=== PATIENT | male | born 1985 | race Caucasian/White ===

== ENCOUNTER 2016-11-28 04:02 | Emergency (ER) | payer SELFPAY ==
[2016-11-28] MEDS ORDERED: SODIUM CHLORIDE 0.9% 1000ML 1,000 ML IVS ONE ×2 (04:32→05:56)
[2016-11-28] MEDS ORDERED: MORPHINE SULFATE INJ 10 MG/ML VIAL IV ONE (04:33)
[2016-11-28] MEDS ORDERED: ONDANSETRON ODT 8 MG TAB SL SCH (05:00)
--- NOTE | 2016-11-28 05:31 | RAD ---
EXAM: Acute abdominal series. INDICATION: Abdominal pain, acute. COMPARISON: None. FINDINGS: Cardiac silhouette: Unremarkable. Lisa: Unremarkable. Lobar consolidation: None. Pleural effusion: None. Pneumothorax: None. Other: None. Intraperitoneal free air: Negative. Bowel: No dilated loops of small bowel or air-fluid levels. Bones: Unremarkable. Other: None. IMPRESSION: 1. Nonspecific, nonobstructed bowel gas pattern. Electronically signed by: Silvano Mojica MD 11/28/2016 5:30 AM CDT
[2016-11-28] MEDS ORDERED: PROMETHAZINE HCL 25 MG TAB PO ONE (05:57)
--- NOTE | 2016-11-28 06:01 | ED.PDOC ---
History of Present Illness - General Chief Complaint: Abdominal Pain Stated Complaint: n/v, abd pain Time Seen by Provider: 11/28/16 04:27 Source: patient Exam Limitations: no limitations - History of Present Illness Initial Comments: the patient is a 31-year-old male presenting to the emergency room secondary to multiple episodes of nausea and vomiting since 10 PM last night. He has had several episodes of diarrhea. No syncope or near-syncope. No definite fevers. He was feeling fine before that time. No previous abdominal surgeries. No history of diverticulitis. he has had no significant clinical history of reflux issues. On exam he has diffuse abdominal discomfort to Palpation. he may have some mild left costovertebral angle tenderness. Severity: moderate Improving Factors: nothing Worsening Factors: nothing, movement Associated Symptoms: loss of appetite, malaise, nausea/vomiting Allergies/Adverse Reactions: Allergies NO KNOWN ALLERGY Allergy (Verified 11/28/16 05:07) Home Medications: Ambulatory Orders Ondansetron [Zofran Odt] 4 mg PO Q4H PRN #10 tab 11/28/16 Review of Systems - Review of Systems Constitutional: States: malaise EENTM: States: no symptoms reported Respiratory: States: no symptoms reported Cardiology: States: no symptoms reported Gastrointestinal/Abdominal: States: abdominal pain, diarrhea, nausea, vomiting Genitourinary: States: no symptoms reported Musculoskeletal: States: back pain Skin: States: no symptoms reported Neurological: States: anxiety Endocrine: States: no symptoms reported All other Systems: No Change from Baseline Past Medical History (General) - Patient Medical History Hx Asthma: No Hx Cardiac Disorders: No Hx Diabetes: No Hx Cancer: No Hx Hepatitis C: No Surgical History: no surgical history - Vaccination History Hx Tetanus, Diphtheria Vaccination: Yes Hx Influenza Vaccination: No - Social History Hx Tobacco Use: No Hx Alcohol Use: Yes Family Medical History - Family History Grandparents Hx Cardiac Disease: Yes Physical Exam - Physical Exam General Appearance: Alert, Anxious Eye Exam: bilateral normal Ears, Nose, Throat: hearing grossly normal, normal ENT inspection, normal pharynx Neck: non-tender, full range of motion, supple, normal inspection Respiratory: chest non-tender, lungs clear, normal breath sounds, no respiratory distress, no accessory muscle use Cardiovascular/Chest: normal peripheral pulses, regular rate, rhythm, no edema Peripheral Pulses: radial,right: 2+, radial,left: 2+, dorsalis pedis,right: 2+, dorsalis pedis,left: 2+ Gastrointestinal/Abdominal: other - see history of present illness Rectal Exam: deferred Back Exam: normal inspection, no vertebral tenderness, CVA tenderness (L) - mild Extremity: normal range of motion, non-tender, normal inspection, no pedal edema , no calf tenderness, normal capillary refill Neurologic: alert, normal mood/affect, oriented x 3 Skin Exam: normal color Comments: Vital Signs - 24 hr 11/28/16 11/28/16 04:40 05:50 Temperature 98.1 F 98.3 F Pulse Rate [ 94 H 94 H left] Respiratory 18 16 Rate Blood Pressure 126/77 125/73 [left] O2 Sat by Pulse 95 95 Oximetry Progress - Progress Progress: 11/28/16 06:03 the patient is a 31-year-old male presenting with approximately 6 hours of abdominal pain associated nausea and vomiting and some diarrhea. The nausea has been well controlled with Zofran and oral Phenergan. He'll be written for Zofran for as needed use. diarrhea appears to have stopped. He has received a couple liters of IV fluids. Laboratory work appears reassuring. He needs to keep well-hydrated. Needs to take Pepcid twice daily for the next week. He needs to follow-up with his primary care doctor early next week. ER warnings were given. 11/28/16 06:48 - Results/Orders Results/Orders: Laboratory Tests 11/28/16 11/28/16 11/28/16 04:45 04:45 04:45 WBC RBC Hgb Hct MCV MCH MCHC RDW Plt Count MPV Absolute Neuts (auto) Absolute Lymphs (auto) Absolute Monos (auto) Absolute Eos (auto) Absolute Basos (auto) Neutrophils % Lymphocytes % Monocytes % Eosinophils % Basophils % PT 12.4 INR 1.100 PTT (SP) 29.2 Sodium 137 Potassium 3.8 Chloride 103 Carbon Dioxide 26 Anion Gap 11.8 L BUN 15 Creatinine 0.99 BUN/Creatinine Ratio 15.2 Random Glucose 115 H Serum Osmolality 275.6 Calcium 8.9 Magnesium 1.9 Total Bilirubin 1.1 H AST 29 ALT 30 Alkaline Phosphatase 59 Creatine Kinase 104 CK-MB (CK-2) 3.8 CK-MB (CK-2) % Not Reportable Troponin I < 0.02 B-Natriuretic Peptide < 5.0 Serum Total Protein 7.9 Albumin 4.2 Globulin 3.7 H Albumin/Globulin Ratio 1.1 Amylase 42 Lipase 34 Urine Color Urine Appearance Urine pH Ur Specific Bradley Urine Protein Urine Glucose (UA) Urine Ketones Urine Blood Urine Nitrite Urine Bilirubin Urine Urobilinogen Ur Leukocyte Esterase Urine RBC Urine WBC Ur Epithelial Cells Urine Bacteria Urine Mucus Urine Opiates Screen Negative Urine Barbiturates Negative Ur Phencyclidine Scrn Negative U Amphetamin/Meth Scrn Positive H U Benzodiazepines Scrn Negative U Cocaine Metab Screen Negative U Cannabinoids Screen Negative 11/28/16 11/28/16 04:45 04:48 WBC 8.9 RBC 5.02 Hgb 15.2 Hct 44.5 MCV 88.5 MCH 30.3 MCHC 34.2 RDW 13.2 Plt Count 195 MPV 7.8 Absolute Neuts (auto) 7.60 H Absolute Lymphs (auto) 0.50 L Absolute Monos (auto) 0.40 Absolute Eos (auto) 0.30 Absolute Basos (auto) 0.00 Neutrophils % 85.8 H Lymphocytes % 5.2 L Monocytes % 5.0 Eosinophils % 3.5 Basophils % 0.5 PT INR PTT (SP) Sodium Potassium Chloride Carbon Dioxide Anion Gap BUN Creatinine BUN/Creatinine Ratio Random Glucose Serum Osmolality Calcium Magnesium Total Bilirubin AST ALT Alkaline Phosphatase Creatine Kinase CK-MB (CK-2) CK-MB (CK-2) % Troponin I B-Natriuretic Peptide Serum Total Protein Albumin Globulin Albumin/Globulin Ratio Amylase Lipase Urine Color Yellow Urine Appearance Clear Urine pH 7.0 Ur Specific Bradley 1.020 Urine Protein 30 Urine Glucose (UA) Negative Urine Ketones Negative Urine Blood Negative Urine Nitrite Negative Urine Bilirubin Small H Urine Urobilinogen 2.0 H Ur Leukocyte Esterase Negative Urine RBC 0 Urine WBC 3-5 H Ur Epithelial Cells 0 Urine Bacteria Rare Urine Mucus Small Urine Opiates Screen Urine Barbiturates Ur Phencyclidine Scrn U Amphetamin/Meth Scrn U Benzodiazepines Scrn U Cocaine Metab Screen U Cannabinoids Screen abdominal series shows no specific bowel gas pattern. No evidence of obstruction. No free air. No pulmonary infiltrates or fluid overload. Departure - Departure Clinical Impression: Gastroenteritis Disposition: Discharge to Home or Self Care Condition: Fair Departure Forms: ED Discharge - Pt. Copy, Patient Portal Self Enrollment Instructions: DI for Viral Gastroenteritis -- Adult Diet: bland diet Activity: increase activity as tolerated Referrals: Sujit Clinton MD [Primary Care Provider] - 1-2 Weeks Prescriptions: Ondansetron [Zofran Odt] 4 mg PO Q4H PRN #10 tab PRN Reason: Vomiting Home Medications: Ambulatory Orders Ondansetron [Zofran Odt] 4 mg PO Q4H PRN #10 tab 11/28/16 Additional Instructions: the patient is a 31-year-old male presenting with approximately 6 hours of abdominal pain associated nausea and vomiting and some diarrhea. The nausea has been well controlled with Zofran and oral Phenergan. He'll be written for Zofran for as needed use. diarrhea appears to have stopped. He has received a couple liters of IV fluids. Laboratory work appears reassuring. He needs to keep well-hydrated. Needs to take Pepcid twice daily for the next week. He needs to follow-up with his primary care doctor early next week. ER warnings were given.
[2016-11-28 06:43] VITALS: TEMP 98.7
[2016-11-28 07:19] VITALS: BP 130/77; O2SAT 98
== END 2016-11-28 07:18 | disposition home or self-care (01) ==
LOC: ER 04:02
DX: K52.9 Noninfective gastroenteritis and colitis, unspecified (principal); Z82.49 Family history of ischemic heart disease and other diseases of the circulatory system
CPT/HCPCS: 36415; 74020; 80053; 80307; 81001; 82150; 82550; 82553; 83690; 83735; 83880; 84484; 85025; 85610; 85730; 87040; J2270; J7030; Q0169